=== PATIENT | female | born 1955 | race Caucasian/White ===

== ENCOUNTER 2021-06-04 08:49 | Outpatient (CLI) | payer OTHER | END 2021-06-04 08:50 | disposition home or self-care (01) | LOC: CSHULT 08:49 | PROVIDERS: ATTEND Obstetrics & Gynecology | DX: N64.59 Other signs and symptoms in breast (principal) ==

== ENCOUNTER 2022-09-30 09:10 | Emergency (ER) | payer OTHER, MEDICARE ==
[2022-09-30] MEDS ORDERED: Ketorolac Tromethamine 30 MG/ML VIAL ONE (09:48)
[2022-09-30] MEDS ORDERED: Diazepam 10 MG/2 ML SYRINGE ONE (09:48)
== END 2022-09-30 11:02 | disposition home or self-care (01) ==
LOC: CSHERS 09:10
DX: S33.5XXA Sprain of ligaments of lumbar spine, initial encounter (principal); I10 Essential (primary) hypertension; W01.0XXA Fall on same level from slipping, tripping and stumbling without subsequent striking against object, initial encounter
CPT/HCPCS: 72072; 72100; 96372; J1885; J3360